=== PATIENT | female | born 1980 | race Caucasian/White ===

== ENCOUNTER 2018-12-15 05:36 | Day surgery (SDC) | payer OTHER ==
[2018-12-14 14:40] LABS: BASOPHILS % (AUTO) 0.3 % (0-1); EOSINOPHILS % (AUTO) 0.3 % (0-6); LYMPHOCYTES # (AUTO) 1.7 X10'3 (1.1-4.8); MEAN CORPUSCULAR HGB CONC 32.3 g/dL (33.0-36.5); MEAN CORPUSCULAR VOLUME 80.7 FL (78-98); MEAN PLATELET VOLUME 8.3 FL (7.4-10.4); MONOCYTES # (AUTO) 0.4 X10'3 (0-0.9); MONOCYTES % (AUTO) 4.8 % (2-12); NEUTROPHILS # (AUTO) 5.9 X10'3 (1.8-7.7); NEUTROPHILS % (AUTO) 73.6 % (42-75); PRE OP HEMATOCRIT 35.3 % (35.0-45.0); PRE OP HEMOGLOBIN 11.4 g/dL (12.0-16.0); PRE OP PLATELET COUNT 328 X10'3 (140-440); RED BLOOD COUNT 4.38 X10'6 (4.20-5.60); RED CELL DISTRIBUTION WIDTH 15.4 % (11.5-14.5)
[2018-12-14 14:42] LABS: CLARITY,URINE SLIGHTLY CLOUDY (Clear); COLOR,URINE STRAW (Yellow); GLUCOSE, URINE NEGATIVE (Neg); KETONES,URINE NEGATIVE (Neg); LEUKOCYTE ESTERASE ,URINE NEGATIVE (Neg); NITRITES, URINE NEGATIVE (Neg); OCCULT BLOOD,URINE MODERATE (Neg); PH,URINE 5.5 (4.8-8.0); PROTEIN,URINE NEGATIVE (Neg); UROBILINOGEN,URINE 0.2 E.U/dL (0.2-1.0)
[2018-12-14 14:46] LABS: ALBUMIN 3.7 G/DL (3.4-5.0); ALKALINE PHOSPHATASE 63 IU/L (46-116); BLOOD UREA NITROGEN 11 MG/DL (7-18); BUN/CREATININE RATIO 16.7 (6.6-38.0); CALCIUM 9.5 MG/DL (8.5-10.1); CHLORIDE 103 MMOL/L (99-107); CREATININE 0.66 MG/DL (0.40-0.90); PRE OP ALT 20 U/L (30-65); PRE OP ANION GAP 6 (8-16); PRE OP AST 19 U/L (10-37); PRE OP BILIRUB, TOTAL 0.2 MG/DL (0.0-1.0); PRE OP GLUCOSE 94 MG/DL (70-104); PRE OP SODIUM 137 MMOL/L (135-145); TOTAL CARBON DIOXIDE 28.5 MMOL/L (24-32); TOTAL PROTEIN 7.4 G/DL (6.4-8.2); eGFR > 90 ML/MIN
[2018-12-14 14:48] LABS: UA COLLECTION TYPE NON-SPECIFIED
[2018-12-14 14:49] LABS: MUCUS STRANDS NONE SEEN /LPF (Neg); SQUAMOUS EPITHELIAL CELL,UR MANY /LPF (FEW)
[2018-12-14 14:50] LABS: PRE OP POTASSIUM 3.2 MMOL/L (3.4-5.1)
[2018-12-14 14:50] LABS: BACTERIA,URINE 3+ /HPF (Neg); RBC,URINE 0-2 /HPF (0-2); WBC,URINE NONE SEEN /HPF (0-4)
[2018-12-15] VITALS (8 sets, daily range): BP systolic 100–120; BP diastolic 50–62
[~2018-12-15] VITALS: Ht 160 cm; Wt 59.7 kg
[~2018-12-15 05:36] MED LIST: NO HOME MEDS; cefotetan 2gm/isosm dext IVPB 50 ML IV ONE; famotidine 20mg tablet PO ONE; ringers solution, lacted 1,000 ML IV SCH
[2018-12-15] MEDS ORDERED: LIDOcaine 1% (10mg/ml) 2ml vial ONE (05:50)
[2018-12-15] MEDS ORDERED: epiNEPHrine 1 mg/ml inj ONE (06:47)
[2018-12-15] MEDS ORDERED: BUPIVAcaine/PF 2.5mg/ml (0.25%) 10ml vial ONE (06:48)
[2018-12-15 06:56] LABS: ISTAT ANION GAP 11 (8-12); ISTAT BUN 7 mg/dL (6-19); ISTAT CL 104 mmol/L (99-107); ISTAT CREATININE 0.7 mg/dL (0.6-1.1); ISTAT GLUCOSE 93 mg/dL (70-104); ISTAT HGB 11.2 g/dl (12.0-16.0); ISTAT Hct 33 %PCV (35-48); ISTAT IONIZED CALCIUM 1.37 mmol/L (1.03-1.32); ISTAT K 4.1 mmol/L (3.5-5.1); ISTAT NA 139 mmol/L (135-145); ISTAT TOTAL CO2 24 mmol/L (24-32); ISTAT eGFR > 90 ML/MIN
[2018-12-15] MEDS ORDERED: fentaNYL/PF 50MCG/1 ML 2ML syringe ONE (07:12)
[2018-12-15] MEDS ORDERED: midazolam 2 mg/2 ml injection ONE (07:13)
[2018-12-15] MEDS ORDERED: rocuronium 10mg/ml inj IV ONE (07:13)
[2018-12-15] MEDS ORDERED: propofol inj 20 ML IV ONE (07:14)
[2018-12-15] MEDS ORDERED: ringers solution, lacted 1,000 ML IV SCH (07:26)
[2018-12-15] MEDS ORDERED: proCHLORperazine 10 MG/2 ml inj IV PRN (07:30)
[2018-12-15] MEDS ORDERED: meperidine/PF 25mg/ml syringe IV PRN ×3 (07:30)
[2018-12-15] MEDS ORDERED: ondansetron/PF 4mg/2ml inj IV PRN (07:30)
[2018-12-15] MEDS ORDERED: morphine 4 MG/ML inj SYRINge IV PRN ×2 (07:30)
[2018-12-15] MEDS ORDERED: sevoflurane 250ml liquid IH ONE (07:32)
[2018-12-15] MEDS ORDERED: ondansetron/PF 4mg/2ml inj ONE (08:14)
[2018-12-15] MEDS ORDERED: dexamethasone sod phosphate 4mg/ml inj. ONE (08:14)
[2018-12-15] MEDS ORDERED: ketorolac trometh. 30mg/ml inj. ONE (08:14)
[2018-12-15] MEDS ORDERED: neostigmine methylsulfate 1 MG/ML 10ml vial ONE (08:23)
[2018-12-15] MEDS ORDERED: glycopyrrolate 0.2mg/ml inj ONE (08:23)
--- NOTE | 2018-12-15 08:40 | NUR ---
ARRIVED IN PACU VIA [facility] OR WITH O2 ON AND DR Cobos IN ATTENDANCE. REPORT RECEIVED. PT RESTLESS. SHE STATES IS HAVING PAIN BUT ITS TOLERABLE RIGHT NOW.
--- NOTE | 2018-12-15 09:10 | NUR ---
SLEEPING VS STABLE
--- NOTE | 2018-12-15 09:40 | NUR ---
PT SITTING UP DRINKING WATER. AT BEDSIDE. PT DECLINE PAIN MEDS. REVIEWED DISCHARGE INSTRUCTIONS.
--- NOTE | 2018-12-15 10:20 | NUR ---
PT HAS HER POST MEDS AT HOME Addendum: 12/15/18 at 1040 by Cecile Billingsley RN Amended: Links added.
--- NOTE | 2018-12-15 10:20 | NUR ---
UP DRESSED WITH LITTLE HELP. STEADY ON FEET. TO CAR VIA W/C ACCOMPANIED BY NURSE WITHOUT INCIDENT
== END 2018-12-15 10:20 | disposition home or self-care (01) ==
LOC: PAS 05:36
PROVIDERS: ATTEND Obstetrics & Gynecology Obstetrics
DX: O00.101 Right tubal pregnancy without intrauterine pregnancy (principal); Z98.890 Other specified postprocedural states; Z87.891 Personal history of nicotine dependence
CPT/HCPCS: 36415; 59151; 80047; 80053; 81001; 85025; 86885; 86900; 86901; A6255; J0171; J1100; J1885; J2250; J2405; J2704; J2710; J3010; J3490; J7030; J7120; A4355; A7000

== ENCOUNTER 2023-03-04 10:38 | Outpatient (CLI) | payer OTHER ==
[~2023-03-04 10:38] MED LIST changes: -cefotetan 2gm/isosm dext IVPB 50 ML IV ONE; -famotidine 20mg tablet PO ONE; -ringers solution, lacted 1,000 ML IV SCH
[2023-03-05 11:16] LABS: ANTINUCLEAR ANTIBODIES Negative (Negative); ANTISTREPTOLYSIN O AB 79.3 IU/mL (0.0-200.0)
[2023-03-06 06:26] LABS: A/G RATIO 1.2 (0.7-1.7); ALBUMIN 3.7 g/dL (2.9-4.4); GAMMA GLOBULIN 1.2 g/dL (0.4-1.8); GLOBULIN, TOTAL 3.1 g/dL (2.2-3.9); M-SPIKE Not Observed g/dL (Not Observed); PROTEIN, TOTAL, SERUM 6.8 g/dL (6.0-8.5)
[2023-03-06 13:23] LABS: THYROID PEROXIDASE AB <9 IU/mL (0-34)
== END 2023-03-04 23:59 | disposition home or self-care (01) ==
LOC: LAB 10:38
PROVIDERS: ATTEND Family Medicine
DX: D50.8 Other iron deficiency anemias (principal); R89.9 Unspecified abnormal finding in specimens from other organs, systems and tissues; R53.83 Other fatigue
CPT/HCPCS: 36415; 83615; 84155; 84165; 85651; 86038; 86060; 86140; 86376

== ENCOUNTER 2023-04-23 15:12 | Emergency (ER) | payer OTHER ==
[~2023-04-23] VITALS: Ht 160 cm; Wt 60.0 kg
[2023-04-23 15:23] VITALS: BP 119/81
[2023-04-23 17:20] LABS: ALANINE AMINOTRANSFERASE 24 U/L (12-78); ALBUMIN/GLOBULIN RATIO 1.2 (1.1-1.5); ALKALINE PHOSPHATASE 57 IU/L (46-116); ANION GAP 9 (8-16); ASPARTATE AMINO TRANSFERASE 20 U/L (10-37); BILIRUBIN,TOTAL 0.2 MG/DL (0.1-1.0); BLOOD UREA NITROGEN 12 MG/DL (7-18); BUN/CREATININE RATIO 17.6 (10.0-20.0); CALCIUM 9.8 MG/DL (8.5-10.1); CHLORIDE 103 MMOL/L (99-107); CREATININE 0.68 MG/DL (0.40-0.90); GLUCOSE 92 MG/DL (70-104); SODIUM 138 MMOL/L (135-145); TOTAL CARBON DIOXIDE 26.1 MMOL/L (24-32); TOTAL PROTEIN 7.4 G/DL (6.4-8.2); eGFR > 90 ML/MIN
[2023-04-23 17:24] LABS: BASOPHILS % (AUTO) 0.5 % (0-1); EOSINOPHILS % (AUTO) 0.5 % (0-6); HEMOGLOBIN 10.8 g/dl (12.0-16.0); LYMPHOCYTES # (AUTO) 1.6 X10'3 (1.1-4.8); LYMPHOCYTES % (AUTO) 24.5 % (21-51); MEAN CORPUSCULAR HEMOGLOBIN 24.3 PG (27.0-31.0); MEAN CORPUSCULAR HGB CONC 31.7 g/dL (33.0-36.5); MEAN CORPUSCULAR VOLUME 76.6 FL (78-98); MEAN PLATELET VOLUME 8.6 FL (7.4-10.4); MONOCYTES # (AUTO) 0.3 X10'3 (0-0.9); MONOCYTES % (AUTO) 4.9 % (2-12); NEUTROPHILS # (AUTO) 4.5 X10'3 (1.8-7.7); NEUTROPHILS % (AUTO) 69.6 % (42-75); PLATELET COUNT 317 X10'3 (140-440); RED BLOOD COUNT 4.43 X10'6 (4.20-5.60); RED CELL DISTRIBUTION WIDTH 16.7 % (11.5-14.5); WHITE BLOOD COUNT 6.4 X10'3 (4.5-11.0)
== END 2023-04-23 18:52 | disposition home or self-care (01) ==
LOC: ER 15:12
DX: R07.9 Chest pain, unspecified (principal); F41.9 Anxiety disorder, unspecified; R06.02 Shortness of breath; Z79.899 Other long term (current) drug therapy
CPT/HCPCS: 36415; 71045; 80053; 83880; 84484; 85025; 93005; 99285